=== PATIENT | female | born 1960 | race Caucasian/White ===

== ENCOUNTER 2016-09-09 14:04 | Day surgery (SDC) | payer BC, MEDICARE ==
[~2016-09-09 14:04] MED LIST: ACETAMINOP PO; ACYCLOVIR400 MG PO; AMIODARONE HCL200 M1 PO; ANCEF-D5W2000 MG/50 IV; BP MEDS; BUTRANS1 EAC4 TD; CARDURA1 M1 PO; CATAPRES-TTS 31 EACH TP; CATAPRES0.2 MG PO; CATHFLO ACT2 MG/VIAL IV; CELLCEPT250 M1 PO; CLONIDINE HCL0.2 M1 PO; COREG12.5 MG PO; COREG25 MG PO; CYANOCOBAL1000 MCG/3 SC; DAPTOMYCIN IV; DAZIDOX20 MG PO; DIAZEPAM2 M2 PO; DILAUDID2 M1 PO; DILAUDID4 MG PO; DURAGESIC1 PATCH .7 TOP; ELIQUIS2.5 M1 PO; FAMOTIDINE40 MG/5 ML OTHER; HYDRALAZINE HCL50 M1 PO; HYDROCODONE; IBUPROFEN200 MG; K-DUR20 ME1 PO; LASIX40 M1 PO; LASIX40 MG PO; LASIX80 MG PO; LEVAQUIN500 MG PO; LEVAQUIN750 MG PO; LOPRESSOR50 M1 PO; MACROBID 100 M100 M1 PO; MAXIPIME1 G/VIAL IV; METOLAZONE2.5 MG PO; METOPROLOL TART25 M1 PO; METOPROLOL TART25 MG; MORPHINE; MORPHINE S20 MG/5 ML PO; MYCELEX10 MG MM; NEURONTIN300 MG PO; NORCO 5/325 TAB1 TAB PO; NORVASC10 M2 PO; NORVASC2.5 M1 PO; NORVASC5 MG PO; OXYCODONE H5 MG/5 M2 PO; OXYCONTIN10 MG; PHENERGAN25 M1 PO; PREDNISONE10 M1 PO; PREDNISONE20 MG PO; PROCRIT20000 UNIT SC; PROMETHAZINE25 MG PO; ROXANOL PO; ROXANOL SL; ROXANOL20 MG/ML PO; SODIUM CHLORIDE10 M1 FL; SPIRONOLACTONE25 M1 PO; TPN; TPN (ADULT)1 EA IV; TPN ELECTROLYTE20 M1; TPN IV; TYLENOL325 M1 PO; TYLENOL325 M2 PO; TYLENOL325 MG PO; VENOFER100 MG/5 M IV; VITAMIN B12 IM; VITAMIN D350000 UNI1 PO; VITAMIN D50000 UNIT PO; XANAX0.25 MG PO; ZAROXOLYN2.5 M1 PO; ZESTRIL10 M1 PO; ZESTRIL2.5 M1 PO; ZOFRAN; ZOFRAN ODT4 MG PO; ZOFRAN ODT4 MG/UDTAB PO; ZOFRAN4 M2 PO; ZOFRAN4 MG; ZOFRAN4 MG PO; [UNRECOGNIZED DRUG - OTHER] IV; [UNRECOGNIZED DRUG - OTHER] IV
== END 2016-09-09 16:45 ==
LOC: RADSP 14:04 → SHSC 14:08
PROC: B51WYZZ Fluoroscopy of Dialysis Shunt/Fistula using Other Contrast (ICD-10-PCS; principal; 2016-09-09)
PROC: 037Y3ZZ Dilation of Upper Artery, Percutaneous Approach (ICD-10-PCS; 2016-09-09)
DX: T82.858A Stenosis of other vascular prosthetic devices, implants and grafts, initial encounter (principal); I12.0 Hypertensive chronic kidney disease with stage 5 chronic kidney disease or end stage renal disease; N18.6 End stage renal disease; Z79.01 Long term (current) use of anticoagulants; Z79.899 Other long term (current) drug therapy; Z87.891 Personal history of nicotine dependence; Z85.038 Personal history of other malignant neoplasm of large intestine; Z85.51 Personal history of malignant neoplasm of bladder; Z90.49 Acquired absence of other specified parts of digestive tract; Z90.710 Acquired absence of both cervix and uterus; Z90.79 Acquired absence of other genital organ(s); Z90.722 Acquired absence of ovaries, bilateral; Z98.890 Other specified postprocedural states; Z99.2 Dependence on renal dialysis
CPT/HCPCS: C1725; C1769; C1887; J1644; J2250; J3010; Q9967